=== PATIENT | female | born 1945 | race Caucasian/White ===

== ENCOUNTER 2018-04-21 13:11 | Inpatient (IN) | payer OTHER ==
[2018-04-14 13:22] LABS: URINE BILIRUBIN NEGATIVE (Negative); URINE BLOOD TRACE (Negative); URINE CLARITY CLEAR; URINE COLOR YELLOW; URINE GLUCOSE-RANDOM* NEGATIVE (Negative); URINE KETONES NEGATIVE (Negative); URINE LEUKOCYTES-REFLEX NEGATIVE (Negative); URINE NITRITE-REFLEX NEGATIVE (Negative); URINE PROTEIN (DIPSTICK) NEGATIVE (Negative); URINE SPECIFIC GRAVITY <= 1.005 (1.005-1.035); URINE UROBILINOGEN 0.2 E.U./dl (0.2-1.0)
[2018-04-14 13:23] LABS: HEMATOCRIT 36.5 % (37.0-47.0); HEMOGLOBIN 12.8 gm/dL (12.0-15.0); MCH 32.3 pg (26.0-34.0); MCHC 35.1 g/dL (28.0-37.0); MCV 92.1 fL (80.0-100.0); RBC 3.96 mil/uL (4.20-5.00); RDW 12.3 % (10.5-14.5); WBC 8.7 thou/uL (4.0-11.0)
[2018-04-14 13:31] LABS: CALCIUM 9.9 mg/dL (8.5-10.1); CREATININE 0.8 mg/dL (0.6-1.0); POTASSIUM 4.1 mmol/L (3.5-5.1); PROTIME 9.9 Seconds (9.3-11.4)
[~2018-04-21] VITALS: Ht 162.6 cm; Wt 56.7 kg
--- NOTE | ~2018-04-21 | EKG ---
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
--- NOTE | ~2018-04-21 | O ---
[facility] [place] [address] OPERATIVE REPORT Name: QUAN CROSS Room #: 150-5 ADM IN M.R.#: [id number] Admission: 04/28/18 Attend Phys: Anastacio Morrissey MD Discharge: Date of : 43 Report #: [id number] THIS REPORT FOR: //name// CC: FAM patti Morrissey DATE OF SERVICE: 04/28/2018 PREOPERATIVE DIAGNOSIS: Right knee osteoarthritis. POSTOPERATIVE DIAGNOSIS: Right knee osteoarthritis. PROCEDURE: Right total knee arthroplasty with Navio robotic assistance. SURGEON: Anastacio Morrissey MD ACCOUNTS ADJUSTABLE CLERK: Trini Barakat PA-C INDICATION FOR ASSISTANCE: Throughout the case, extensive retraction and manipulation of the knee was required. This was afforded to me by my lpn medical assistant. ANESTHESIA: LMA with an adductor canal block. IMPLANTS: [employer] size 5 Legion cobalt chrome posterior stabilized femur, a size 4 tibia, a size 10 polyethylene, and a size 35 patella. TOURNIQUET TIME: 58 minutes. ESTIMATED BLOOD LOSS: 25 mL. COMPLICATIONS: None. SPECIMENS: None. CONDITION UPON LEAVING THE OPERATING ROOM: Stable. INDICATIONS FOR PROCEDURE: The patient is a 72-year-old female with severe right knee osteoarthritis. She had failed conservative measures for this and after discussion with her, she elected for right total knee arthroplasty. DESCRIPTION OF PROCEDURE: Risks, benefits, alternatives and complications were discussed in detail with the patient including but not limited to risk of anesthesia, risk of damage to nerves, arteries and blood vessels, risk for infection and bleeding, risk for continued knee pain and need for reoperation. [facility] [address] [place] [address] OPERATIVE REPORT Name: QUAN CROSS Room #: 150-5 [facility] IN ..#: [id number] Admission: 04/28/18 Attend Phys: Anastacio Morrissey MD Discharge: Date of : 43 Report #: [id number] Informed consent was obtained from the patient. The right knee was appropriately marked in the preoperative holding area. IV Ancef was given for preoperative antibiotics. Adductor canal block was placed by Anesthesia. She was brought to the operating room and placed in the supine position on the operating room table. LMA anesthesia was induced without complication. Tourniquet was placed on the right thigh. Right lower extremity was prepped and draped in normal sterile fashion. Timeout was performed properly identifying the patient and procedure as well as the instrumentation and implants. All in the operating room were in agreement. Right lower extremity was exsanguinated. Tourniquet was inflated. Tourniquet time was 58 minutes. Standard midline approach to the knee was made with a 10 blade through the skin. Dissection was taken down sharply to the fascia and deep flaps were developed medially and laterally. A fresh 10 blade was used to make a medial parapatellar arthrotomy and the knee was inspected. There was severe medial compartment osteoarthritis with moderate lateral and patellofemoral involvement. ACL and PCL were removed sharply. Osteophytes were removed from the femur. Reference pins were then placed in the femur and the tibia for the Navio robotic system. The knee was then mapped using the Navio system and intraoperative plan was made. We sized a size 5 for the femur and a size 4 for the tibia. After acceptance of the intraoperative plan, the distal femoral cut was made using the Navio bur. A size 5, 4-in-1 cutting block was placed on the femur and anterior, posterior and chamfer cuts were made. Knee was then hyperflexed. The menisci were removed with Bovie cautery and the tibial resection was then placed using the Navio to place the tibial resection guide. After this, flexion and extension gaps were checked and found to have good balance in flexion and extension both medially and laterally. Tibia was sized, found to be a size 4. A size 4 tibial trial was placed and punched. A size 5 femoral trial was placed and the box cut was made. This was then trialed with a size 10 polyethylene. This was then checked both manually and digitally using the Navio system and found to have equal balance in flexion and extension with a millimeter of medial and lateral laxity. 5 mm was taken off the posterior surface of the patella and a size 35 patellar trial button was placed. The knee was taken through range of motion, found to be stable, found to have good balance in flexion and extension both manually and with the Navio. After this, trial components were removed. Bony ends were thoroughly irrigated with normal saline. A final size 4 tibia, a size 5 Legion cobalt chrome posterior stabilized femur and a size 35 patella were cemented in place using standard cementation techniques. While the cement cured, a periarticular injection consisting of morphine, ropivacaine, epinephrine and Toradol were placed around the knee joint capsule. After the cement cured, the tourniquet was deflated. Hemostasis was obtained with Bovie cautery. A final size 10 polyethylene was placed. A gram of vancomycin was placed deep in the joint. The fascia was closed with 0 Vicryl, skin was closed with 2-0 Vicryl, 3-0 Monocryl. Dermabond and a MISAEL dressing was applied. The patient tolerated [address] [address] OPERATIVE REPORT Name: QUAN CROSS Room #: 150-5 [facility] IN [facility]#: [id number] Admission: 04/28/18 Attend Phys: Anastacio Morrissey MD Discharge: Date of : 43 Report #: [id number] this procedure well and went to the recovery room under the care of Anesthesia postoperatively. By: 1642 1839 Anastacio Morrissey MD /nt
[~2018-04-21 13:11] MED LIST: ACETAMINOPHEN325 M1 PO; ALEVE220 MG PO; APAP650 PO; ATENOLOL 25 MG25 M1 PO; B-121000 MCG PO; B-COMPLEX-VITA1 EACH PO; B12INJ PO; BAYER CHEWABLE81 MG PO; CALCIUM 600 +1 EA11 PO; FOLIC ACID0.4 MG PO; GLUCOSAMINE CH1 EAC7 PO; L-LYSINE500 M1 PO; PRAVACHOL40 MG PO; PYRIDOXINE HCL100 MG PO; VITAMIN D35000 UNIT PO; VITAMINC500 PO; WOMEN'S DAILY1 EACH PO
[2018-04-28] VITALS (8 sets, daily range): BP systolic 104–151; BP diastolic 58–72
[2018-04-29] VITALS: BP 115/67
[2018-04-29 04:30] VITALS: BP 121/57
[2018-04-29 05:14] LABS: HEMATOCRIT 31.8 % (37.0-47.0); MCH 32.3 pg (26.0-34.0); MCHC 34.5 g/dL (28.0-37.0); MCV 93.4 fL (80.0-100.0); RBC 3.41 mil/uL (4.20-5.00); RDW 12.3 % (10.5-14.5); WBC 7.8 thou/uL (4.0-11.0)
[2018-04-29 12:06] VITALS: BP 97/62
[2018-04-29] MEDS ORDERED: TRI-BUFFERED A325 M1 PO (12:27)
[2018-04-29] MEDS ORDERED: NEURONTIN 300300 M1 PO (12:27)
[2018-04-29 14:42] VITALS: BP 97/62
[2018-04-30 04:04] VITALS: BP 110/42
[2018-04-30 06:47] LABS: HEMATOCRIT 29.3 % (37.0-47.0); HEMOGLOBIN 10.6 gm/dL (12.0-15.0); MCH 33.9 pg (26.0-34.0); MCHC 36.2 g/dL (28.0-37.0); MCV 93.7 fL (80.0-100.0); RBC 3.13 mil/uL (4.20-5.00); RDW 12.3 % (10.5-14.5); WBC 7.7 thou/uL (4.0-11.0)
[2018-04-30 07:28] VITALS: BP 80/41
[2018-04-30 10:15] VITALS: BP 104/54
[2018-04-30 14:25] VITALS: BP 105/42
[2018-04-30 15:46] VITALS: BP 97/62
[2018-04-30 19:28] VITALS: BP 104/52
[2018-05-01 04:47] VITALS: BP 109/52
[2018-05-01 05:44] LABS: HEMATOCRIT 26.1 % (37.0-47.0); HEMOGLOBIN 9.4 gm/dL (12.0-15.0); MCH 33.5 pg (26.0-34.0); MCHC 35.9 g/dL (28.0-37.0); MCV 93.1 fL (80.0-100.0); RBC 2.8 mil/uL (4.20-5.00); WBC 7.2 thou/uL (4.0-11.0)
[2018-05-01 07:30] VITALS: BP 102/54
== END 2018-05-01 15:09 | disposition home or self-care (01) | DRG 470 ==
LOC: PRE 13:11 → 4E 04-28 05:26 → TBA 04-28 05:26 → PRE 04-28 05:40 → 4E 04-28 19:06
PROVIDERS: Orthopaedic Surgery
PROC: 0SRC0J9 Replacement of Right Knee Joint with Synthetic Substitute, Cemented, Open Approach (ICD-10-PCS; principal; 2018-04-28)
DX: M17.11 Unilateral primary osteoarthritis, right knee (principal); Z79.82 Long term (current) use of aspirin; Z79.899 Other long term (current) drug therapy
CPT/HCPCS: 10783; 50010; 50101; 50415; 50954; 51130; 51225; 51771; 53000; 53078; 53364; 54118; 56527; 56528; 57095; 57103; 57109; 57110; 57113; 57127; 62110; 62900; 64042

== ENCOUNTER 2018-05-08 14:56 | Inpatient (IN) | payer OTHER ==
[~2018-05-08] VITALS: Ht 162.6 cm; Wt 61.2 kg
--- NOTE | ~2018-05-08 | EKG ---
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1945 Requested By: Ivone Heard Order Number: [id number] MD: Félix Ritter Measurements Intervals [place] Rate: 84 P: 60 ME: 149 QRS: 44 QRSD: 67 T: 41 QT: 340 QTc: 402 Interpretive Statements Sinus rhythm Anteroseptal infarct, age indeterminate Compared to ECG 04/28/2018 16:57:57 Myocardial infarct finding now present ST (T wave) deviation no longer present Electronically Signed On 05-09-2018 10:20:14 MOLDER SETTER by Félix Ritter [email or web address] <ELECTRONICALLY SIGNED> By: Félix Ritter MD 05/09/18 1020 1502 1502 Félix Ritter MD /CELIA
--- NOTE | ~2018-05-08 | HC ---
[facility] [place] [address] CONSULTATION Name: QUAN CROSS Genaro Room #: 350-P [facility]..#: [id number] Admission: 05/08/18 Attend Phys: Pelon Persaud Discharge: 05/10/18 Date of : 43 Report #: [id number] THIS REPORT FOR: //name// CC: Gian Torres DATE OF SERVICE: 05/09/2018 HISTORY OF PRESENT ILLNESS: This is a 72-year-old female patient who was evaluated by me in the Emergency Room yesterday and was reevaluated by me today. This is a combined note. This patient has presented with weakness on the left hand of about 3 days duration. It had come spontaneously. The patient had had surgery done but the symptoms started just about 3 days ago. She never had any stroke before. Her blood pressure was fluctuating. Her hemoglobin has been persistently going down. For some reason, her white count has gone up some. REVIEW OF SYSTEMS: Indicate that she had a recent knee surgery. On evaluation, it looks like she has a significant stenosis on the right side. This in the right carotid. 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 She does have a history of hypertension. Rest of the 14-point review of systems was mostly noncontributory. PAST MEDICAL HISTORY: Positive for knee surgery. FAMILY HISTORY: Negative for early age stroke. SOCIAL HISTORY: She denies she smokes. PHYSICAL EXAMINATION: NEUROLOGICAL: Indicate she is alert, responsive, able to follow simple and complex command. Her cranial nerve examination 2 through 12 looks unremarkable. She does have slight weakness on the left side, but she is able to do rapid finger tapping, alternate finger tapping, reasonably well, but she said she still has trouble tying the shoe and doing some finer coordination. CARDIAC: Examinations appear noncontributory. VITAL SIGNS: Blood pressure now is 131/68, respirations 14, pulse is 76 and temperature is 98.1. IMPRESSION: 1. Left hand weakness. 2. Right carotid stenosis. RECOMMENDATIONS: We need to determine the cause of the left hand weakness with more certainty. It will be desirable to do an MRI to see if the patient has any acute stroke or even chronic stroke in the right carotid distribution. That [address] [address] CONSULTATION Name: QUAN CROSS Room #: 350-P [facility] IN ..#: [id number] Admission: 05/08/18 Attend Phys: Pelon Persaud Discharge: 05/10/18 Date of : 43 Report #: [id number] will give us confidence that the stenosis is symptomatic. Further treatment will depend upon whether MRI finding is present or not. Similarly, we would like to do the MRI of the C-spine to make sure there is no pathology there. Depending upon what the MRI shows, we may have to do a carotid Doppler if further confirmation of the stenosis is desired if the radiologist not sure about that. I discussed all of it with the patient. I discussed his options with her. I discussed with her that she has an option of picking up her hospital or her surgeon, she wants to talk to. She would like to talk to the vascular surgeon here and their consult is pending. More than 50 minutes of time was spent taking care of this patient today and majority of that time was spent counseling the patient and coordinating her care. Thank you very much for this referral. <ELECTRONICALLY SIGNED> By: Lasha Marquez MD 05/12/18 1001 1738 [id number] Lasha Marquez MD /nt
[~2018-05-08 14:56] MED LIST changes: +NEURONTIN 300300 M1 PO; +TRI-BUFFERED A325 M1 PO
[2018-05-08 14:57] VITALS: BP 167/70
[2018-05-08] MEDS ORDERED: PERCOCET 7.5-31 EACH PO (15:08)
[2018-05-08 15:29] LABS: HEMATOCRIT 24.3 % (37.0-47.0); HEMOGLOBIN 8.3 gm/dL (12.0-15.0); MCH 31.5 pg (26.0-34.0); MCHC 34.1 g/dL (28.0-37.0); MCV 92.5 fL (80.0-100.0); RBC 2.63 mil/uL (4.20-5.00); RDW 12.4 % (10.5-14.5); WBC 15.4 thou/uL (4.0-11.0)
[2018-05-08 15:34] LABS: ANION GAP 8 mmol/L (7-16); BUN 13 mg/dL (7-18); CALCIUM 9.5 mg/dL (8.5-10.1); CHLORIDE 104 mmol/L (98-107); CO2 28 mmol/L (21-32); CREATININE 0.7 mg/dL (0.6-1.0); GLUCOSE 110 mg/dL (74-106); POTASSIUM 4.5 mmol/L (3.5-5.1); SODIUM 140 mmol/L (136-145)
[2018-05-08 15:43] LABS: TROPONIN-I <0.06 ng/mL (<0.06)
[2018-05-08 16:19] LABS: ABSOLUTE NEUTROPHILS 12.3 thou/uL (1.4-8.2); PLATELET COUNT 327 thou/uL (150-400)
[2018-05-08 18:35] LABS: URINE BILIRUBIN NEGATIVE (Negative); URINE BLOOD NEGATIVE (Negative); URINE CLARITY CLEAR; URINE COLOR YELLOW; URINE GLUCOSE-RANDOM* NEGATIVE (Negative); URINE KETONES NEGATIVE (Negative); URINE LEUKOCYTES-REFLEX NEGATIVE (Negative); URINE NITRITE-REFLEX NEGATIVE (Negative); URINE PROTEIN (DIPSTICK) NEGATIVE (Negative); URINE UROBILINOGEN 0.2 E.U./dl (0.2-1.0)
[2018-05-08 18:40] VITALS: BP 126/59
[2018-05-08 19:32] VITALS: BP 113/45; BP 146/59
[2018-05-08 19:55] VITALS: BP 131/74; BP 133/62
[2018-05-08 23:09] LABS: HEMOGLOBIN 7.7 gm/dL (12.0-15.0)
[2018-05-08 23:30] VITALS: BP 110/58
[2018-05-08 23:54] LABS: % SATURATION 21 % (20-39); IRON 34 ug/dL (50-170); TIBC 163 ug/dL (250-450)
[2018-05-09 00:52] LABS: FOLIC ACID 36.8 ng/mL (8.6-58.9)
[2018-05-09 03:40] VITALS: BP 126/53
[2018-05-09 07:23] VITALS: BP 122/65
[2018-05-09 11:19] LABS: CHOLESTEROL 157 mg/dL (<200); HDL CHOLESTEROL 58 mg/dL (>40); LDL CHOLESTEROL 71 mg/dL (<100); TC:HDL 2.7 Ratio (Not establshd); TRIGLYCERIDE 140 mg/dL (<150); VLDL 28 mg/dL (<40)
[2018-05-09 11:25] VITALS: BP 105/55
[2018-05-09 15:12] VITALS: BP 131/68
[2018-05-09 19:06] VITALS: BP 132/66
[2018-05-09 22:47] LABS: HEMATOCRIT 25.1 % (37.0-47.0); HEMOGLOBIN 8.8 gm/dL (12.0-15.0)
[2018-05-10 04:31] VITALS: BP 130/54
[2018-05-10 05:40] LABS: HEMATOCRIT 23.3 % (37.0-47.0); HEMOGLOBIN 8.1 gm/dL (12.0-15.0); MCH 32.2 pg (26.0-34.0); MCHC 34.8 g/dL (28.0-37.0); MCV 92.7 fL (80.0-100.0); RBC 2.51 mil/uL (4.20-5.00); RDW 12.6 % (10.5-14.5); WBC 6.7 thou/uL (4.0-11.0)
[2018-05-10 05:54] LABS: ALBUMIN 2.5 g/dL (3.4-5.0); CALCIUM 8.9 mg/dL (8.5-10.1); CREATININE 0.6 mg/dL (0.6-1.0); POTASSIUM 3.7 mmol/L (3.5-5.1); TOTAL BILIRUBIN 0.4 mg/dL (<0.1-1.0)
[2018-05-10 07:01] VITALS: BP 119/59
[2018-05-10 12:11] VITALS: BP 119/59
[2018-05-10 13:15] VITALS: BP 119/59
== END 2018-05-10 12:30 | disposition home or self-care (01) | DRG 67 ==
LOC: ER 14:56 → 3W 18:32 → EROBS 18:32 → 3W 19:42 → ENTRNSPT 05-10 12:45 → CMPTRNSPT 05-10 12:50
PROVIDERS: Hospitalist; Nurse Practitioner Acute Care; Student in an Organized Health Care Education/Training Program
DX: I65.21 Occlusion and stenosis of right carotid artery (principal); E43 Unspecified severe protein-calorie malnutrition; D62 Acute posthemorrhagic anemia; E46 Unspecified protein-calorie malnutrition; I10 Essential (primary) hypertension; E78.00 Pure hypercholesterolemia, unspecified; I16.0 Hypertensive urgency; Z96.651 Presence of right artificial knee joint; K59.00 Constipation, unspecified; M81.0 Age-related osteoporosis without current pathological fracture; Z68.23 Body mass index [BMI] 23.0-23.9, adult; Z90.49 Acquired absence of other specified parts of digestive tract; Z87.891 Personal history of nicotine dependence; Z79.82 Long term (current) use of aspirin; Z79.899 Other long term (current) drug therapy; Z82.49 Family history of ischemic heart disease and other diseases of the circulatory system
CPT/HCPCS: 10879

== ENCOUNTER → 2020-01-10 | Outpatient (CLI) | payer OTHER ==
[~2020-01-10] MED LIST changes: +PERCOCET 7.5-31 EACH PO
== END ==
LOC: SJCVC 11:12
PROVIDERS: ATTEND Internal Medicine Cardiovascular Disease
DX: R94.31 Abnormal electrocardiogram [ECG] [EKG] (principal); R93.1 Abnormal findings on diagnostic imaging of heart and coronary circulation; E78.00 Pure hypercholesterolemia, unspecified; I10 Essential (primary) hypertension; I25.10 Atherosclerotic heart disease of native coronary artery without angina pectoris; Z82.49 Family history of ischemic heart disease and other diseases of the circulatory system

== ENCOUNTER → 2020-04-30 | Outpatient (CLI) | payer OTHER | LOC: SJCVCIMAG 09:04 | PROVIDERS: ATTEND Internal Medicine Cardiovascular Disease | DX: I25.10 Atherosclerotic heart disease of native coronary artery without angina pectoris (principal); R93.1 Abnormal findings on diagnostic imaging of heart and coronary circulation; Z79.899 Other long term (current) drug therapy ==

== ENCOUNTER → 2021-01-15 | Outpatient (CLI) | payer OTHER | LOC: SJCVC 10:26 | PROVIDERS: ATTEND Internal Medicine Cardiovascular Disease | DX: R94.31 Abnormal electrocardiogram [ECG] [EKG] (principal); R93.1 Abnormal findings on diagnostic imaging of heart and coronary circulation; I10 Essential (primary) hypertension; E78.00 Pure hypercholesterolemia, unspecified; Z82.49 Family history of ischemic heart disease and other diseases of the circulatory system; Z87.891 Personal history of nicotine dependence; Z79.899 Other long term (current) drug therapy; Z79.82 Long term (current) use of aspirin ==